=== PATIENT | male | born 2000 | race Caucasian/White ===

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

== ENCOUNTER 2020-02-22 09:58 | Emergency (ER) | payer MEDICAID ==
[~2020-02-22] VITALS: Ht 185.4 cm; Wt 118.9 kg
[2020-02-22 10:05] VITALS: BP 128/72
[2020-02-22] MEDS ORDERED: CIPR10DR EACH EAR (10:41)
[2020-02-22] MEDS ORDERED: AMOX500C2 PO (10:41)
== END 2020-02-22 10:52 | disposition home or self-care (01) ==
LOC: ER 09:58
DX: H60.503 Unspecified acute noninfective otitis externa, bilateral (principal); Z79.899 Other long term (current) drug therapy
CPT/HCPCS: 99283

== ENCOUNTER 2020-03-03 08:00 | Emergency (ER) | payer MEDICAID ==
[~2020-03-03] VITALS: Ht 190.5 cm; Wt 110.0 kg
[2020-03-03] MEDS ORDERED: dexamethasone 4mg tablet PO ONE (08:45)
[2020-03-03] MEDS ORDERED: diphenhydrAMINE 25mg capsule PO ONE (08:45)
[2020-03-03] MEDS ORDERED: epiNEPHrine 1 mg/ml inj SQ PRN (08:45)
[2020-03-03] MEDS ORDERED: famotidine/PF 10 mg/ml inj IV ONE (08:45)
[2020-03-03] MEDS ORDERED: famotidine 20mg tablet PO ONE (08:50)
[2020-03-03] MEDS ORDERED: PRED20TA PO (09:03)
[2020-03-03 09:12] VITALS: BP 127/80
== END 2020-03-03 10:04 | disposition home or self-care (01) ==
LOC: ER 08:01
DX: R21 Rash and other nonspecific skin eruption (principal); T36.0X5A Adverse effect of penicillins, initial encounter; R06.02 Shortness of breath; Z88.1 Allergy status to other antibiotic agents; Z79.899 Other long term (current) drug therapy; Y92.89 Other specified places as the place of occurrence of the external cause
CPT/HCPCS: 96372; 99284; J0171; Q0163

== ENCOUNTER 2020-05-25 10:36 | Emergency (ER) | payer MEDICAID ==
[~2020-05-25] VITALS: Ht 182.9 cm; Wt 100.0 kg
[2020-05-25 10:43] VITALS: BP 138/81
[2020-05-25] MEDS ORDERED: ibuprofen tablet 400 MG TABLET PO ONE (11:55)
== END 2020-05-25 13:50 | disposition home or self-care (01) ==
LOC: ER 10:38
DX: M25.572 Pain in left ankle and joints of left foot (principal); Z88.1 Allergy status to other antibiotic agents
CPT/HCPCS: 73564; 99283

== ENCOUNTER 2020-09-15 18:22 | Emergency (ER) | payer MEDICAID ==
[~2020-09-15] VITALS: Ht 185.4 cm; Wt 115.3 kg
[2020-09-15] MEDS ORDERED: triamcinolone acetonide 40mg/ml inj IM ONE (20:40)
[2020-09-15] MEDS ORDERED: diphenhydrAMINE 25mg capsule PO ONE (20:40)
[2020-09-15] MEDS ORDERED: BETA15CR4 TOP (20:42)
[2020-09-15] MEDS ORDERED: HYDR-3686 PO (20:42)
[2020-09-15] MEDS ORDERED: PRED20TA PO (20:42)
[2020-09-15 21:03] VITALS: BP 113/75
== END 2020-09-15 21:05 | disposition home or self-care (01) ==
LOC: ER 18:22
DX: L23.9 Allergic contact dermatitis, unspecified cause (principal); Z88.1 Allergy status to other antibiotic agents; Z79.899 Other long term (current) drug therapy
CPT/HCPCS: 96372; 99283; J3301; Q0163

== ENCOUNTER 2020-10-05 12:03 | Emergency (ER) | payer MEDICAID ==
[~2020-10-05] VITALS: Ht 185.4 cm; Wt 121.7 kg
[~2020-10-05 12:03] MED LIST changes: +BETA15CR4 TOP; +PRED20TA PO
[2020-10-05 12:04] VITALS: BP 124/94
[2020-10-05] MEDS ORDERED: HYDR28CR14 TOP (13:10)
[2020-10-05] MEDS ORDERED: triamcinolone acetonide 40mg/ml inj IM ONE (13:10)
== END 2020-10-05 14:04 | disposition home or self-care (01) ==
LOC: ER 12:03
DX: L23.7 Allergic contact dermatitis due to plants, except food (principal); Z88.1 Allergy status to other antibiotic agents; Z79.899 Other long term (current) drug therapy
CPT/HCPCS: 96372; 99283; J3301

== ENCOUNTER 2020-10-27 07:12 | Emergency (ER) | payer MEDICAID ==
[~2020-10-27] VITALS: Ht 185.4 cm; Wt 114.8 kg
[~2020-10-27 07:12] MED LIST changes: +HYDR28CR14 TOP; -PRED20TA PO
[2020-10-27 07:39] VITALS: BP 123/83
[2020-10-27] MEDS ORDERED: CEFD300C3 PO (10:56)
== END 2020-10-27 11:11 | disposition home or self-care (01) ==
LOC: ER 07:12
DX: H72.92 Unspecified perforation of tympanic membrane, left ear (principal); H92.02 Otalgia, left ear; H91.92 Unspecified hearing loss, left ear; Z88.1 Allergy status to other antibiotic agents; Z79.2 Long term (current) use of antibiotics; Z79.899 Other long term (current) drug therapy
CPT/HCPCS: 99283

== ENCOUNTER 2020-12-01 17:46 | Emergency (ER) | payer MEDICAID ==
[~2020-12-01] VITALS: Ht 185.4 cm; Wt 118.3 kg
[2020-12-01 18:07] VITALS: BP 119/80
[2020-12-01 18:39] LABS: BASOPHILS # (AUTO) 0.1 X10'3 (0-0.2); BASOPHILS % (AUTO) 0.8 % (0-1); EOSINOPHILS # (AUTO) 0.4 X10'3 (0-0.9); EOSINOPHILS % (AUTO) 4.8 % (0-6); HEMATOCRIT 46.4 % (42.0-52.0); HEMOGLOBIN 15.7 g/dl (14.0-17.9); LYMPHOCYTES # (AUTO) 2.5 X10'3 (1.1-4.8); LYMPHOCYTES % (AUTO) 27.3 % (21-51); MEAN CORPUSCULAR HEMOGLOBIN 30.6 PG (27.0-31.0); MEAN CORPUSCULAR HGB CONC 33.9 g/dL (33.0-36.5); MEAN CORPUSCULAR VOLUME 90.3 FL (78-98); MEAN PLATELET VOLUME 7.2 FL (7.4-10.4); MONOCYTES # (AUTO) 0.8 X10'3 (0-0.9); MONOCYTES % (AUTO) 8.3 % (2-12); NEUTROPHILS # (AUTO) 5.4 X10'3 (1.8-7.7); NEUTROPHILS % (AUTO) 58.8 % (42-75); PLATELET COUNT 260 X10'3 (140-440); RED BLOOD COUNT 5.14 X10'6 (4.70-6.10); RED CELL DISTRIBUTION WIDTH 13.3 % (11.5-14.5); WHITE BLOOD COUNT 9.1 X10'3 (4.5-11.0)
[2020-12-01 18:53] LABS: ALANINE AMINOTRANSFERASE 27 U/L (12-78); ALBUMIN/GLOBULIN RATIO 1.3 (1.1-1.5); ALKALINE PHOSPHATASE 71 IU/L (20-180); ANION GAP 9 (8-16); ASPARTATE AMINO TRANSFERASE 11 U/L (10-37); BILIRUBIN,TOTAL 0.4 MG/DL (0.1-1.0); BLOOD UREA NITROGEN 11 MG/DL (7-18); BUN/CREATININE RATIO 10.5 (5.4-32.0); CALCIUM 8.6 MG/DL (8.5-10.1); CHLORIDE 107 MMOL/L (99-107); CREATININE 1.05 MG/DL (0.60-1.10); GLUCOSE 94 MG/DL (70-104); LIPASE 59 U/L (73-393); POTASSIUM 3.7 MMOL/L (3.5-5.1); SODIUM 144 MMOL/L (135-145); TOTAL PROTEIN 7.2 G/DL (6.4-8.2); eGFR > 90 ML/MIN
== END 2020-12-01 19:02 | disposition home or self-care (01) ==
LOC: ER 17:46
DX: Z02.89 Encounter for other administrative examinations (principal); F41.9 Anxiety disorder, unspecified; Z88.1 Allergy status to other antibiotic agents; Z79.899 Other long term (current) drug therapy
CPT/HCPCS: 36415; 80053; 82948; 83690; 85025; 93005; 99284

== ENCOUNTER 2021-04-06 10:35 | Emergency (ER) | payer MEDICAID ==
[~2021-04-06] VITALS: Ht 185.4 cm; Wt 113.6 kg
[2021-04-06] MEDS ORDERED: iohexol 350MG/ML 100ml bottle IV ONE (11:19)
[2021-04-06 12:18] VITALS: BP 121/76
== END 2021-04-06 12:20 | disposition home or self-care (01) ==
LOC: ER 10:36
DX: S06.0X0A Concussion without loss of consciousness, initial encounter (principal); R51.9 Headache, unspecified; R55 Syncope and collapse; H53.2 Diplopia; R11.2 Nausea with vomiting, unspecified; Z88.1 Allergy status to other antibiotic agents; Z79.899 Other long term (current) drug therapy; X58.XXXA Exposure to other specified factors, initial encounter; Y93.01 Activity, walking, marching and hiking; Y92.89 Other specified places as the place of occurrence of the external cause; Y99.8 Other external cause status
CPT/HCPCS: 70450; 93005; 99284; Q9967

== ENCOUNTER → 2021-05-20 | Emergency (ER) | payer MEDICAID ==
[~2021-05-20] VITALS: Ht 185.4 cm; Wt 113.0 kg
[~2021-05-20] MED LIST changes: +CEPH-585 PO; +LIDO20SO16 PO; +LIDOcaine Viscous 15ml cup MM STA; +cephalexin 250mg capsule PO ONE
[2021-05-20 09:33] VITALS: BP 125/65
[2021-05-20 11:14] LABS: MONOTEST NEGATIVE (Neg)
== END | disposition home or self-care (01) ==
LOC: ER 09:22
DX: J03.90 Acute tonsillitis, unspecified (principal); F17.200 Nicotine dependence, unspecified, uncomplicated; Z88.1 Allergy status to other antibiotic agents; Z79.2 Long term (current) use of antibiotics; Z79.899 Other long term (current) drug therapy
CPT/HCPCS: 36415; 86308; 87081; 87880; 99283

== ENCOUNTER 2022-08-02 16:32 | Emergency (ER) | payer MEDICAID ==
[~2022-08-02] VITALS: Ht 185.4 cm; Wt 125.0 kg
[~2022-08-02 16:32] MED LIST changes: -CEPH-585 PO; -LIDOcaine Viscous 15ml cup MM STA; -cephalexin 250mg capsule PO ONE
[2022-08-02 16:37] VITALS: BP 133/80
[2022-08-02] MEDS ORDERED: CEPH-585 PO (17:05)
== END 2022-08-02 17:14 | disposition home or self-care (01) ==
LOC: ER 16:34
DX: L03.116 Cellulitis of left lower limb (principal); Z88.0 Allergy status to penicillin; Z88.1 Allergy status to other antibiotic agents; Z79.899 Other long term (current) drug therapy; Z88.5 Allergy status to narcotic agent
CPT/HCPCS: 99283; 99284

== ENCOUNTER 2022-08-28 21:55 | Emergency (ER) | payer MEDICAID ==
[~2022-08-28] VITALS: Ht 185.4 cm; Wt 118.2 kg
[~2022-08-28 21:55] MED LIST changes: +CEPH-585 PO
[2022-08-28 21:59] VITALS: BP 146/87
== END 2022-08-29 00:30 | disposition left against medical advice (07) ==
LOC: ER 21:56
DX: T75.4XXA Electrocution, initial encounter (principal); Z53.21 Procedure and treatment not carried out due to patient leaving prior to being seen by health care provider
CPT/HCPCS: 93005; 99281

== ENCOUNTER 2023-11-12 10:42 | Emergency (ER) | payer MEDICAID, OTHER ==
[~2023-11-12] VITALS: Ht 185.4 cm; Wt 125.0 kg
[~2023-11-12 10:42] MED LIST changes: -CEPH-585 PO
[2023-11-12] MEDS ORDERED: IBUP-1985 PO (12:46)
[2023-11-12] MEDS ORDERED: CLIN300C3 PO (12:46)
[2023-11-12] MEDS: ibuprofen 200mg tablet PO ONE (12:55)
[2023-11-12] MEDS: clindamycin 150mg capsule PO ONE (12:55)
[2023-11-12 12:59] VITALS: BP 147/69; PULSE 62; RESP 15; TEMP 98.2; O2SAT 99
== END 2023-11-12 13:01 | disposition home or self-care (01) ==
LOC: ER 10:42
DX: K04.7 Periapical abscess without sinus (principal); Z88.0 Allergy status to penicillin; Z88.1 Allergy status to other antibiotic agents; Z88.5 Allergy status to narcotic agent; Z79.899 Other long term (current) drug therapy; Z79.1 Long term (current) use of non-steroidal anti-inflammatories (NSAID); Z79.2 Long term (current) use of antibiotics
CPT/HCPCS: 99283